=== PATIENT | male | born 1955 | race Caucasian/White ===

== ENCOUNTER 2017-03-10 08:20 | Day surgery (SDC) | payer BC ==
[2017-03-08 09:29] VITALS: BMI 33.0
--- NOTE | 2017-03-10 09:45 | HP ---
History & Physical Update - History History: No Change - Physical Physical: No Change - Assessment Assessment: No Change - Plan Plan: No Change
[2017-03-10] MEDS ORDERED: MIDAZOLAM HCL 2 MG/2 ML SINGLE DOSE VIAL ONE (10:05)
[2017-03-10] MEDS ORDERED: PROPOFOL 20 ML ONE ×2 (10:05)
[2017-03-10] MEDS ORDERED: ceFAZolin SODIUM 1 GM VIAL ONE (10:16)
[2017-03-10] MEDS ORDERED: ONDANSETRON 4 MG/2 ML VIAL ONE (10:16)
[2017-03-10] MEDS ORDERED: DEXAMETHASONE SOD PHOSPHATE 4 MG/1 ML VIAL ONE (10:16)
[2017-03-10] MEDS ORDERED: BUPIVACAINE HCL/EPINEPHRINE/PF 30 ML VIAL IJ ONE (10:20)
[2017-03-10] MEDS ORDERED: PHENYLEPHRINE HCL 10 MG/1 ML SINGLE DOSE VIAL ONE (11:00)
[2017-03-10] MEDS ORDERED: BUPIVACAINE 0.25% /EPI 1:200,000 10 ML VIAL INF ONE (11:00)
[2017-03-10] MEDS ORDERED: ONDANSETRON 4 MG/2 ML VIAL IVPUSH PRN (11:43)
[2017-03-10] MEDS ORDERED: oxyCODONE HCL 5 MG TABLET PO PRN (11:43)
[2017-03-10] MEDS ORDERED: LACTATED RINGERS SOLUTION 1,000 ML IV SCH (11:45)
[2017-03-10] MEDS ORDERED: CEFAZOLIN 1 GM in DEXTROSE 5%-WATER - 50 ML IVPB ONE (11:52)
--- NOTE | 2017-03-10 12:03 | SURG ---
Surgery Report Manager Note Report Manager: Flor Rodriguez PA-C Date of Service: 03/10/17 Diagnosis: left knee medial meniscus tear. osteoarthritis and meniscal cyst Procedure: Left knee arthroscopy mini open with medial meniscal cyst excision and microfracture and debridement I was present for the entirety of the operative procedure. For further detail, please refer to operative report. Visit type - Case Type Case Type: Scheduled Admission - Emergency Emergency Visit: No - New patient This patient is new to me today: Yes Date on this admission: 03/10/17
--- NOTE | 2017-03-10 12:19 | OP ---
DATE OF OPERATION: 03/10/2017 PREOPERATIVE DIAGNOSIS: Left knee internal derangement with very large medial meniscus cyst causing saphenous nerve symptoms. POSTOPERATIVE DIAGNOSES: Paramedial meniscus large meniscal cyst, saphenous nerve endogenous compression, multiple loose bodies, medial meniscus tear, lateral meniscus tear. PROCEDURE PERFORMED: Open excision of large meniscal cyst, surgical decompression of saphenous nerve, medial meniscectomy, lateral meniscectomy, loose body removal, microfracture of medial femoral condyle. INDICATIONS: The patient has had arthritic changes and meniscal mechanical symptoms. Recently, however, he has had saphenous nerve paresthesias, pain, and a mass that is almost 3 inches across, hard, on the medial aspect of the knee. He understands the risks and benefits and the likely need for arthroplastic surgery on his knee. However, he is here for help with symptoms as described. PROCEDURE: Patient brought to the operating room. Placed on the table in the supine position. The left lower extremity was prepped with Betadine solution in the usual sterile fashion. Local anesthetics were injected. We used a mixture of Exparel and Marcaine along the palpable borders of the mass. We did the open portion of the procedure first. After injecting our anesthetics, giving antibiotics, a proper timeout, and EUA which was unremarkable except for the mass, a curvilinear incision was made in the posteromedial aspect of the knee. Subcutaneous tissues were dissected slowly and the saphenous nerve and vein were discovered. They were tented up over the mass. We carefully and slowly dissected the mass. We used an 11 knife to open it and a large amount of ganglionic-type contents were removed. We then did slow circumferential dissection until we came to the neck of the mass which was the medial aspect of the knee capsule. It was excised from here. Then, a pursestring suture was placed into the capsule which was basically in the MCL meniscal border and this was closed carefully. We irrigated thoroughly with Betadine solution every few minutes throughout the procedure. We now went and evaluated the saphenous nerve. It had been compressed by the mass and surrounding soft tissue was in typical scarry layers that were around it. We had to using very careful microtechnique release this above and below and in the area of the mass as well. The nerve was rather narrowed down in this area. The saphenous vein was maintained intact. We irrigated thoroughly again. We injected some more of the anesthetic and closed subcutaneously with 2-0 Vicryl. The skin was closed with a running horizontal mattress of 4-0 Monocryl and strips were applied. Attention was now turned to the arthroscopic portion of the procedure. An anterolateral portal was opened using blunt trocars. An anteromedial was opened. Arthroscopic Findings: He had a typical meniscally induced osteoarthritic grade 4 picture. The area of the meniscal tear projected up on to the moving femoral condyle, so the cartilage was skewed off down to bare bone, but there was also another cartilage loss down to bare bone in the belly of the femoral condyle which was unipolar, i.e., there was good cartilage on the tibial side which was lateral to the portion underneath the meniscus tear. We therefore performed microfracture there. Meniscectomy: The medial meniscus tear was resected out to the capsule. We could see where we repaired. He had loss of bone through the substance posteriorly. This was all nipped away and normalized. We did leave him with a good rim anteriorly and near the horn as well. Lateral Meniscectomy: The leg was placed in a figure 4 position and the lateral meniscus and lateral compartment were appraised. The articular surface here was perfect. However, there was a tear of the posterior horn. We removed this tear of the lateral meniscus using hand instruments. This was non-destabilizing and did not violate the popliteal hiatus. Loose Body Removal: Multiple large osteocartilaginous loose bodies up to more than 1 cm in size were discovered and crushed and removed. The anterior compartment had grade 3 to 4 changes as well. The ACL was intact. Microfracture: We now microfractured the specific lesion on the belly of the medial femoral condyle that was monopolar. This was about the size of between a quarter and a kleber. We perforated the subchondral plate multiple times to promulgate fibrocartilaginous ingrowth. Conclusion: We irrigated thoroughly and we injected portal sites with the anesthetic solution. We closed the portals with tapes. We put a waterproof dressing on the medial wound. We placed a gentle compressive dressing with an Kenroy bandage and he returned to recovery with vital signs stable, having tolerated the procedure well. He will be discharged to home. We are giving him Percocet for pain. He had antibiotic. I am giving him ice, elevation, and floor buffing exercises as well as straight-leg raising exercises to do. I will see him in the office in followup in 1 week. СЕРГЕЙ TERAN M.D. [id number]
[2017-03-10] MEDS ORDERED: oxyCODONE HCL 5 MG TABLET ONE (13:25)
[2017-03-10] MEDS ORDERED: CEFAZOLIN 1 GM/D5W 50 ML ONE (13:54)
[2017-03-10] MEDS ORDERED: ceFAZolin SODIUM 1 GM VIAL IVPB ONE (15:00)
[2017-03-10 15:12] VITALS: TEMP 97.9
[2017-03-10 16:12] VITALS: BP 134/81; PULSE 79
--- NOTE | 2017-03-14 12:42 | PATH ---
Surgical Pathology Report Patient Name: TANYA OLIVO Med. Rec. #: [id number] /Age/Gender: 1955 (Age: 61) / M Account: [id number] Location: [facility] AMBULATORY Taken: 03/10/2017 Received: 03/10/2017 Reported: 03/14/2017 Physicians: Anthony Cardenas M.D. Specimen(s) Received MASS MEDIAL LEFT KNEE Clinical History Meniscal tear Final Diagnosis KNEE, LEFT MEDIAL, MASS, EXCISION: BENIGN FIBROUS TISSUE LINED CYST WITH DEGENERATIVE MUCOID CONTENTS; THE DIFFERENTIAL INCLUDES MENISCAL AND GANGLION CYST. CORRELATION WITH CLINICAL AND RADIOLOGIC FINDINGS IS RECOMMENDED. Electronically Signed Flor Barba M.D. Gross Description Received in formalin labeled "mass medial left knee," is a 3.5 x 3.3 x 2.0 cm lezama soft tissue mass. Sectioning reveals a mucinous cystic structure. Talcer sections are submitted in 2 cassettes. /03/11/2017 saudi03/11/2017
== END 2017-03-10 15:50 | disposition home or self-care (01) ==
LOC: FASU 08:20
PROVIDERS: ATTEND Orthopaedic Surgery
PROC: 0SBD4ZZ Excision of Left Knee Joint, Percutaneous Endoscopic Approach (ICD-10-PCS; 2017-03-10)
PROC: 0SQD4ZZ Repair Left Knee Joint, Percutaneous Endoscopic Approach (ICD-10-PCS; 2017-03-10)
PROC: 0YBG0ZZ Excision of Left Knee Region, Open Approach (ICD-10-PCS; 2017-03-10)
PROC: 01N Peripheral Nervous System, Release (ICD-10-PCS; 2017-03-10)
PROC: 0SBD4ZZ Excision of Left Knee Joint, Percutaneous Endoscopic Approach (ICD-10-PCS; principal; 2017-03-10 10:07)
DX: S83.242S Other tear of medial meniscus, current injury, left knee, sequela (principal); S83.28 Other tear of lateral meniscus, current injury; M23.42 Loose body in knee, left knee; G57.82 Other specified mononeuropathies of left lower limb; X58.XXXA Exposure to other specified factors, initial encounter; Y93.9 Activity, unspecified; Y92.9 Unspecified place or not applicable
CPT/HCPCS: 88305-TC; 94760